=== PATIENT | female | born 1950 | race Caucasian/White ===

== ENCOUNTER 2017-06-22 14:59 | Inpatient (IN) | payer MEDICARE, OTHER ==
[~2017-06-22] VITALS: Ht 162.6 cm; Wt 78.6 kg
[~2017-06-22 14:59] MED LIST: NO HOME MEDS
[2017-06-22 16:43] LABS: BASOPHILS % (AUTO) 0.3 % (0-1); EOSINOPHILS # (AUTO) 0.2 X10'3 (0-0.9); EOSINOPHILS % (AUTO) 2.1 % (0-6); HEMATOCRIT 44.1 % (35.0-45.0); HEMOGLOBIN 15.1 g/dl (12.0-16.0); LYMPHOCYTES # (AUTO) 1.3 X10'3 (1.1-4.8); LYMPHOCYTES % (AUTO) 16.1 % (21-51); MEAN CORPUSCULAR HEMOGLOBIN 30.9 PG (27.0-31.0); MEAN CORPUSCULAR HGB CONC 34.3 % (33.0-36.5); MEAN CORPUSCULAR VOLUME 90.3 FL (78-98); MONOCYTES # (AUTO) 0.4 X10'3 (0-0.9); MONOCYTES % (AUTO) 4.4 % (2-12); NEUTROPHILS # (AUTO) 6.4 X10'3 (1.8-7.7); NEUTROPHILS % (AUTO) 77.1 % (42-75); PLATELET COUNT 221 X10'3 (140-440); RED BLOOD COUNT 4.89 X10'6 (4.20-5.60); RED CELL DISTRIBUTION WIDTH 12.6 % (11.5-14.5); WHITE BLOOD COUNT 8.4 X10'3 (4.5-11.0)
[2017-06-22 16:51] LABS: PROTHROMBIN TIME 10.2 SECONDS (9.0-12.0)
[2017-06-22 16:56] LABS: ANION GAP 10 (8-16); BLOOD UREA NITROGEN 10 MG/DL (7-18); BUN/CREATININE RATIO 12.3 (6.6-38.0); CALCIUM 10.1 MG/DL (8.5-10.1); CHLORIDE 107 MMOL/L (99-107); CREATININE 0.81 MG/DL (0.40-0.90); GLUCOSE 114 MG/DL (70-104); POTASSIUM 4.3 MMOL/L (3.5-5.1); SODIUM 141 MMOL/L (135-145); eGFR 71 ML/MIN
[2017-06-22 16:57] LABS: ALANINE AMINOTRANSFERASE 103 U/L (12-78); ALBUMIN 4.1 G/DL (3.4-5.0); ALBUMIN/GLOBULIN RATIO 0.9 (1.1-1.5); ALKALINE PHOSPHATASE 179 IU/L (46-116); ASPARTATE AMINO TRANSFERASE 110 U/L (10-37); BILIRUBIN,TOTAL 0.5 MG/DL (0.1-1.0); TOTAL PROTEIN 8.5 G/DL (6.4-8.2)
[2017-06-22 17:14] LABS: CLARITY,URINE Clear (Clear); COLOR,URINE Yellow (Yellow); GLUCOSE, URINE Negative (Neg); KETONES,URINE Negative (Neg); LEUKOCYTE ESTERASE ,URINE Negative (Neg); NITRITES, URINE Negative (Neg); OCCULT BLOOD,URINE Negative (Neg); PROTEIN,URINE Negative (Neg)
[2017-06-22 17:15] LABS: UA COLLECTION TYPE CLN CATCH MIDSTREAM
[2017-06-22] MEDS ORDERED: ondansetron/PF 4mg/2ml inj IV ONE (17:30)
[2017-06-22 17:34] LABS: PARTIAL THROMBOPLASTIN TIME 27 SECONDS (22-32)
[2017-06-22] MEDS: HYDROmorphone 1 mg/ml syringe IV PRN ×2 (18:22→19:28)
[2017-06-22 18:48] LABS: LIPASE 82 U/L (73-393)
[2017-06-22] MEDS ORDERED: aspirin 81mg tab.chew PO ONE (19:20)
[2017-06-22 19:22] LABS: D-DIMER 1.01 MG/L FEU (0-0.50)
[2017-06-22] MEDS ORDERED: iohexol 350MG/ML 100ml bottle IV ONE ×2 (19:51→19:52)
[2017-06-22] MEDS ORDERED: LIDOcaine Viscous 15ml cup MM ONE (21:15)
[2017-06-22] MEDS ORDERED: mag hydrox/Alum hydrox/simeth 30ml oral suspension PO ONE (21:15)
[2017-06-22] MEDS ORDERED: LORazepam 1 MG tablet PO PRN (21:30)
[2017-06-22] MEDS ORDERED: LORazepam 2 mg/ml vial IV PRN (21:30)
[2017-06-22] MEDS ORDERED: magnesium hydroxide 30ml (MOM) UD suspension PO PRN (21:30)
[2017-06-22] MEDS ORDERED: ondansetron/PF 4mg/2ml inj IV PRN (21:30)
[2017-06-22] MEDS ORDERED: folic acid inj. 2 MG, thiamine inj. 100 MG, MVI, adult No.4 with vit. K 10 ML in dextro... IV SCH ×4 (21:30)
[2017-06-22] MEDS ORDERED: thiamine inj. 100 MG in normal saline 100ml IV soln 100 ML IV ONE (21:30)
[2017-06-22] MEDS: pantoprazole 40mg Tablet.DR PO SCH (22:53)
[2017-06-22] MEDS: normal saline 1000ml 1,000 ML IV SCH (23:14)
[2017-06-22 23:30] VITALS: BP 170/88
[2017-06-23] MEDS: HYDROmorphone 1 mg/ml syringe IV PRN (03:20)
[2017-06-23] MEDS: mag hydrox/Alum hydrox/simeth 30ml oral suspension PO PRN (03:25)
[2017-06-23 05:12] LABS: BASOPHILS % (AUTO) 0.1 % (0-1); EOSINOPHILS % (AUTO) 0 % (0-6); HEMATOCRIT 41.3 % (35.0-45.0); HEMOGLOBIN 13.9 g/dl (12.0-16.0); LYMPHOCYTES # (AUTO) 1.3 X10'3 (1.1-4.8); MEAN CORPUSCULAR HEMOGLOBIN 30.6 PG (27.0-31.0); MEAN CORPUSCULAR HGB CONC 33.6 % (33.0-36.5); MEAN PLATELET VOLUME 9.1 FL (7.4-10.4); MONOCYTES # (AUTO) 0.7 X10'3 (0-0.9); MONOCYTES % (AUTO) 6.4 % (2-12); NEUTROPHILS # (AUTO) 8.9 X10'3 (1.8-7.7); NEUTROPHILS % (AUTO) 81.5 % (42-75); PLATELET COUNT 201 X10'3 (140-440); RED BLOOD COUNT 4.53 X10'6 (4.20-5.60); RED CELL DISTRIBUTION WIDTH 12.9 % (11.5-14.5); WHITE BLOOD COUNT 10.9 X10'3 (4.5-11.0)
[2017-06-23 06:03] LABS: ALANINE AMINOTRANSFERASE 88 U/L (12-78); ALBUMIN 3.7 G/DL (3.4-5.0); ALBUMIN/GLOBULIN RATIO 0.9 (1.1-1.5); ALKALINE PHOSPHATASE 151 IU/L (46-116); ANION GAP 8 (8-16); ASPARTATE AMINO TRANSFERASE 73 U/L (10-37); BILIRUBIN,TOTAL 0.6 MG/DL (0.1-1.0); BLOOD UREA NITROGEN 12 MG/DL (7-18); CALCIUM 9.3 MG/DL (8.5-10.1); CHLORIDE 106 MMOL/L (99-107); CREATININE 0.86 MG/DL (0.40-0.90); GLUCOSE 130 MG/DL (70-104); POTASSIUM 4.2 MMOL/L (3.5-5.1); SODIUM 141 MMOL/L (135-145); TOTAL CARBON DIOXIDE 27.1 MMOL/L (24-32); TOTAL PROTEIN 7.8 G/DL (6.4-8.2); eGFR 66 ML/MIN
[2017-06-23 06:07] LABS: MAGNESIUM 2.1 MG/DL (1.5-2.4)
[2017-06-23] MEDS: thiamine 100mg tablet PO SCH (07:28)
[2017-06-23] MEDS: pantoprazole 40mg Tablet.DR PO SCH (07:29)
[2017-06-23] MEDS: multivitamins, therapeutics tablet PO SCH (07:29)
[2017-06-23] MEDS: folic acid 1mg tablet PO SCH (07:29)
[2017-06-23 08:22] VITALS: BP 155/87
[2017-06-23] MEDS: normal saline 1000ml 1,000 ML IV SCH ×3 (09:36→19:44)
[2017-06-23 12:00] VITALS: BP 132/63
[2017-06-23] MEDS ORDERED: acetaminophen 325mg tablet PO PRN (14:10)
[2017-06-23 15:05] LABS: H PYLORI ANTIBODY NEGATIVE (Neg)
[2017-06-23 19:00] VITALS: BP_SYST 139; BP_SYST 155; BP_DIAS 67; BP_DIAS 75
[2017-06-24] VITALS: BP 140/74
[2017-06-24 03:28] LABS: BASOPHILS % (AUTO) 0.3 % (0-1); EOSINOPHILS # (AUTO) 0.1 X10'3 (0-0.9); EOSINOPHILS % (AUTO) 1.4 % (0-6); HEMATOCRIT 36.1 % (35.0-45.0); HEMOGLOBIN 12.2 g/dl (12.0-16.0); LYMPHOCYTES # (AUTO) 1.3 X10'3 (1.1-4.8); LYMPHOCYTES % (AUTO) 14.7 % (21-51); MEAN CORPUSCULAR HEMOGLOBIN 30.9 PG (27.0-31.0); MEAN CORPUSCULAR HGB CONC 33.7 % (33.0-36.5); MEAN CORPUSCULAR VOLUME 91.7 FL (78-98); MEAN PLATELET VOLUME 9.4 FL (7.4-10.4); MONOCYTES # (AUTO) 0.6 X10'3 (0-0.9); MONOCYTES % (AUTO) 6.3 % (2-12); NEUTROPHILS # (AUTO) 7.1 X10'3 (1.8-7.7); NEUTROPHILS % (AUTO) 77.3 % (42-75); PLATELET COUNT 145 X10'3 (140-440); RED BLOOD COUNT 3.94 X10'6 (4.20-5.60); RED CELL DISTRIBUTION WIDTH 12.6 % (11.5-14.5); WHITE BLOOD COUNT 9.2 X10'3 (4.5-11.0)
[2017-06-24 04:24] LABS: ALANINE AMINOTRANSFERASE 51 U/L (12-78); ALBUMIN 3.1 G/DL (3.4-5.0); ALBUMIN/GLOBULIN RATIO 0.8 (1.1-1.5); ALKALINE PHOSPHATASE 145 IU/L (46-116); ANION GAP 8 (8-16); ASPARTATE AMINO TRANSFERASE 57 U/L (10-37); BILIRUBIN,TOTAL 0.9 MG/DL (0.1-1.0); BLOOD UREA NITROGEN 7 MG/DL (7-18); CALCIUM 8.4 MG/DL (8.5-10.1); CHLORIDE 106 MMOL/L (99-107); CREATININE 0.78 MG/DL (0.40-0.90); GLUCOSE 140 MG/DL (70-104); POTASSIUM 3.7 MMOL/L (3.5-5.1); SODIUM 139 MMOL/L (135-145); TOTAL CARBON DIOXIDE 25.5 MMOL/L (24-32); TOTAL PROTEIN 6.9 G/DL (6.4-8.2); eGFR 74 ML/MIN
[2017-06-24] MEDS: normal saline 1000ml 1,000 ML IV SCH (04:53)
[2017-06-24 07:30] VITALS: BP 155/74
[2017-06-24] MEDS: pantoprazole 40mg Tablet.DR PO SCH (08:28)
[2017-06-24] MEDS: folic acid 1mg tablet PO SCH (08:28)
[2017-06-24] MEDS: multivitamins, therapeutics tablet PO SCH (08:28)
[2017-06-24] MEDS: thiamine 100mg tablet PO SCH (08:28)
[2017-06-24] MEDS ORDERED: dicyclomine 10 MG capsule PO PRN (10:00)
[2017-06-24 11:12] VITALS: BP 149/84
[2017-06-24] MEDS ORDERED: hydrALAZINE 20mg/ml inj. IV SCH (14:00)
[2017-06-24] MEDS: bismuth subsalicylate 525mg/30ml oral suspension PO SCH ×2 (15:27→20:55)
[2017-06-24] MEDS ORDERED: hydrALAZINE 20mg/ml inj. IV PRN (15:35)
[2017-06-24 15:39] VITALS: BP 137/69
[2017-06-24 19:00] VITALS: BP 155/75
[2017-06-24] MEDS: mag hydrox/Alum hydrox/simeth 30ml oral suspension PO PRN (21:27)
[2017-06-25] VITALS: BP 144/74
[2017-06-25] MEDS: mag hydrox/Alum hydrox/simeth 30ml oral suspension PO PRN ×2 (01:26→05:34)
[2017-06-25] MEDS: bismuth subsalicylate 525mg/30ml oral suspension PO SCH ×3 (02:00→14:00)
[2017-06-25 05:28] LABS: BASOPHILS % (AUTO) 0.3 % (0-1); EOSINOPHILS # (AUTO) 0.2 X10'3 (0-0.9); EOSINOPHILS % (AUTO) 2.1 % (0-6); HEMATOCRIT 36.9 % (35.0-45.0); HEMOGLOBIN 12.6 g/dl (12.0-16.0); LYMPHOCYTES # (AUTO) 1.3 X10'3 (1.1-4.8); LYMPHOCYTES % (AUTO) 16.6 % (21-51); MEAN CORPUSCULAR HEMOGLOBIN 31.4 PG (27.0-31.0); MEAN CORPUSCULAR HGB CONC 34.2 % (33.0-36.5); MEAN CORPUSCULAR VOLUME 91.9 FL (78-98); MEAN PLATELET VOLUME 9.3 FL (7.4-10.4); MONOCYTES # (AUTO) 0.4 X10'3 (0-0.9); MONOCYTES % (AUTO) 5.5 % (2-12); NEUTROPHILS # (AUTO) 6.1 X10'3 (1.8-7.7); NEUTROPHILS % (AUTO) 75.5 % (42-75); PLATELET COUNT 150 X10'3 (140-440); RED BLOOD COUNT 4.02 X10'6 (4.20-5.60); RED CELL DISTRIBUTION WIDTH 12.9 % (11.5-14.5)
[2017-06-25 05:45] LABS: ALANINE AMINOTRANSFERASE 60 U/L (12-78); ALBUMIN 3.1 G/DL (3.4-5.0); ALBUMIN/GLOBULIN RATIO 0.7 (1.1-1.5); ALKALINE PHOSPHATASE 171 IU/L (46-116); ANION GAP 8 (8-16); ASPARTATE AMINO TRANSFERASE 39 U/L (10-37); BILIRUBIN,TOTAL 0.7 MG/DL (0.1-1.0); BLOOD UREA NITROGEN 7 MG/DL (7-18); BUN/CREATININE RATIO 9.6 (6.6-38.0); CALCIUM 8.9 MG/DL (8.5-10.1); CHLORIDE 106 MMOL/L (99-107); CREATININE 0.73 MG/DL (0.40-0.90); GLUCOSE 126 MG/DL (70-104); MAGNESIUM 2.1 MG/DL (1.5-2.4); POTASSIUM 3.8 MMOL/L (3.5-5.1); SODIUM 141 MMOL/L (135-145); TOTAL CARBON DIOXIDE 26.6 MMOL/L (24-32); TOTAL PROTEIN 7.4 G/DL (6.4-8.2); eGFR 80 ML/MIN
[2017-06-25 08:00] VITALS: BP 148/74
[2017-06-25] MEDS: folic acid 1mg tablet PO SCH (08:20)
[2017-06-25] MEDS: pantoprazole 40mg Tablet.DR PO SCH (08:20)
[2017-06-25] MEDS: multivitamins, therapeutics tablet PO SCH (08:21)
[2017-06-25] MEDS: thiamine 100mg tablet PO SCH (08:21)
[2017-06-25] MEDS ORDERED: dicyclomine 10 MG capsule PO ONE (09:20)
[2017-06-25] MEDS ORDERED: FOLI1TAB16 PO (14:51)
[2017-06-25] MEDS ORDERED: THI100T PO (14:51)
[2017-06-25] MEDS ORDERED: PANT40TA4 PO (14:51)
[2017-06-25] MEDS ORDERED: MULT-1179 PO (14:51)
[2017-06-25] MEDS ORDERED: AMLO5TAB4 PO (14:56)
== END 2017-06-25 15:26 | disposition home or self-care (01) | DRG 392 ==
LOC: ER 15:00 → ED HOLD 21:28 → OBSVTOIN 21:28 → SUR 3N 23:07
PROVIDERS: ADMIT Internal Medicine; ATTEND Family Medicine
PROC: B32T1ZZ Computerized Tomography (CT Scan) of Left Pulmonary Artery using Low Osmolar Contrast (ICD-10-PCS; principal; 2017-06-22)
PROC: B3201ZZ Computerized Tomography (CT Scan) of Thoracic Aorta using Low Osmolar Contrast (ICD-10-PCS; 2017-06-22)
PROC: B32S1ZZ Computerized Tomography (CT Scan) of Right Pulmonary Artery using Low Osmolar Contrast (ICD-10-PCS; 2017-06-22)
DX: K29.20 Alcoholic gastritis without bleeding (principal); D35.00 Benign neoplasm of unspecified adrenal gland; F10.20 Alcohol dependence, uncomplicated; I10 Essential (primary) hypertension; R74.0 Nonspecific elevation of levels of transaminase and lactic acid dehydrogenase [LDH]; K57.90 Diverticulosis of intestine, part unspecified, without perforation or abscess without bleeding; Z90.710 Acquired absence of both cervix and uterus; Z90.49 Acquired absence of other specified parts of digestive tract; Z79.899 Other long term (current) drug therapy
CPT/HCPCS: 36415; 71045; 71250; 71275; 74176; 80053; 81003; 82378; 83605; 83690; 83735; 84145; 84439; 84443; 84484; 85025; 85379; 85610; 85730; 86677; 87070; 93005; 96374; 96375; 96376; 99285; J0360; J1170; J2405; J3411; J3490; J7030; J7060; Q9967

== ENCOUNTER 2017-07-02 12:58 | Day surgery (SDC) | payer MEDICARE, OTHER ==
[~2017-07-02] VITALS: Ht 164.1 cm; Wt 87.0 kg
[~2017-07-02 12:58] MED LIST changes: +AMLO5TAB4 PO; +FOLI1TAB16 PO; +MULT-1179 PO; -NO HOME MEDS; +PANT40TA4 PO; +THI100T PO
[2017-07-02] MEDS ORDERED: MIDAZolam 1mg/ml 10ml vial ONE (13:14)
[2017-07-02] MEDS ORDERED: LIDOcaine Viscous 15ml cup ONE (13:14)
[2017-07-02] MEDS ORDERED: fentaNYL/PF 50MCG/1 ML 2ML syringe ONE ×2 (13:14→14:44)
[2017-07-02] MEDS ORDERED: NO HOME MEDS (13:29)
[2017-07-02 13:35] VITALS: BP 157/77
[2017-07-02 15:16] VITALS: BP 150/68
[2017-07-02 15:26] VITALS: BP 131/62
[2017-07-02 15:36] VITALS: BP 144/71
== END 2017-07-02 15:50 | disposition home or self-care (01) ==
LOC: GI LAB 12:58
PROVIDERS: ATTEND Internal Medicine Gastroenterology
DX: K57.30 Diverticulosis of large intestine without perforation or abscess without bleeding (principal); Z79.899 Other long term (current) drug therapy; Z98.890 Other specified postprocedural states; Z90.710 Acquired absence of both cervix and uterus; I10 Essential (primary) hypertension; F10.10 Alcohol abuse, uncomplicated
CPT/HCPCS: 43235; 45378; J2250; J3010; J7030; A4620; G0500

== ENCOUNTER 2020-05-23 19:50 | Emergency (ER) | payer MEDICARE, OTHER ==
[~2020-05-23] VITALS: Ht 157.5 cm; Wt 72.7 kg
[~2020-05-23 19:50] MED LIST changes: -AMLO5TAB4 PO; -FOLI1TAB16 PO; -MULT-1179 PO; +NO HOME MEDS; -PANT40TA4 PO; -THI100T PO
[2020-05-23 20:37] VITALS: BP 173/89
== END 2020-05-23 20:40 ==
LOC: ER 19:51
DX: F10.920 Alcohol use, unspecified with intoxication, uncomplicated (principal); E78.00 Pure hypercholesterolemia, unspecified; F17.200 Nicotine dependence, unspecified, uncomplicated; Z90.49 Acquired absence of other specified parts of digestive tract; Z90.710 Acquired absence of both cervix and uterus; V87.7XXA Person injured in collision between other specified motor vehicles (traffic), initial encounter; Y93.89 Activity, other specified; Y92.89 Other specified places as the place of occurrence of the external cause; Y99.8 Other external cause status
CPT/HCPCS: 99283

== ENCOUNTER 2024-07-31 11:25 | Emergency (ER) | payer MEDICARE, OTHER ==
[~2024-07-31] VITALS: Ht 157.5 cm; Wt 65.5 kg
[2024-07-31 11:31] VITALS: TEMP 97.9
[2024-07-31 13:15] VITALS: BP 170/82; PULSE 79; RESP 14; O2SAT 97
[2024-07-31 15:16] LABS: BASOPHILS % (AUTO) 0.6 % (0-1); EOSINOPHILS # (AUTO) 0.2 X10'3 (0-0.9); EOSINOPHILS % (AUTO) 2.2 % (0-6); HEMATOCRIT 46.7 % (35.0-45.0); HEMOGLOBIN 16.2 g/dl (12.0-16.0); LYMPHOCYTES # (AUTO) 1.2 X10'3 (1.1-4.8); LYMPHOCYTES % (AUTO) 16.5 % (21-51); MEAN CORPUSCULAR HEMOGLOBIN 33.5 PG (27.0-31.0); MEAN CORPUSCULAR HGB CONC 34.8 g/dL (33.0-36.5); MEAN CORPUSCULAR VOLUME 96.2 FL (78-98); MEAN PLATELET VOLUME 8.7 FL (7.4-10.4); MONOCYTES # (AUTO) 0.4 X10'3 (0-0.9); MONOCYTES % (AUTO) 5.3 % (2-12); NEUTROPHILS # (AUTO) 5.5 X10'3 (1.8-7.7); NEUTROPHILS % (AUTO) 75.4 % (42-75); PLATELET COUNT 238 X10'3 (140-440); RED BLOOD COUNT 4.85 X10'6 (4.20-5.60); RED CELL DISTRIBUTION WIDTH 12.6 % (11.5-14.5); WHITE BLOOD COUNT 7.3 X10'3 (4.5-11.0)
[2024-07-31 15:34] LABS: ALANINE AMINOTRANSFERASE 53 U/L (12-78); ALBUMIN 3.7 G/DL (3.4-5.0); ALBUMIN/GLOBULIN RATIO 0.9 (1.1-1.5); ALKALINE PHOSPHATASE 100 IU/L (46-116); ANION GAP 9 (8-16); ASPARTATE AMINO TRANSFERASE 63 U/L (10-37); BILIRUBIN,TOTAL 0.5 MG/DL (0.1-1.0); BLOOD UREA NITROGEN 10 MG/DL (7-18); BUN/CREATININE RATIO 13.9 (10.0-20.0); CALCIUM 9.6 MG/DL (8.5-10.1); CHLORIDE 104 MMOL/L (99-107); CREATININE 0.72 MG/DL (0.40-0.90); GLUCOSE 91 MG/DL (70-104); POTASSIUM 3.9 MMOL/L (3.5-5.1); SODIUM 141 MMOL/L (135-145); TOTAL CARBON DIOXIDE 27.7 MMOL/L (24-32); TOTAL PROTEIN 7.9 G/DL (6.4-8.2); eCRCL 55 ML/MIN; eGFR 79 ML/MIN
[2024-07-31 15:39] LABS: BILIRUBIN,URINE NEGATIVE (Neg); CLARITY,URINE SLIGHTLY CLOUDY (Clear); COLOR,URINE YELLOW (Yellow); GLUCOSE, URINE NEGATIVE (Neg); KETONES,URINE NEGATIVE (Neg); LEUKOCYTE ESTERASE ,URINE SMALL (Neg); NITRITES, URINE POSITIVE (Neg); OCCULT BLOOD,URINE NEGATIVE (Neg); PH,URINE 6.5 (4.8-8.0); PROTEIN,URINE NEGATIVE (Neg)
[2024-07-31 15:42] LABS: UA COLLECTION TYPE CLN CATCH MIDSTREAM
[2024-07-31 15:45] LABS: BACTERIA,URINE 4+ /HPF (Neg); RBC,URINE 0-2 /HPF (0-2)
[2024-07-31 15:46] LABS: SQUAMOUS EPITHELIAL CELL,UR FEW /LPF (FEW); WBC CLUMPS,URINE FEW /HPF (NEGATIVE)
== END 2024-07-31 16:09 | disposition home or self-care (01) ==
LOC: ER 11:26
DX: T33.821A Superficial frostbite of right foot, initial encounter (principal); T33.822A Superficial frostbite of left foot, initial encounter; N39.0 Urinary tract infection, site not specified; E78.00 Pure hypercholesterolemia, unspecified; Z90.49 Acquired absence of other specified parts of digestive tract; Z90.710 Acquired absence of both cervix and uterus; Z72.89 Other problems related to lifestyle; X31.XXXA Exposure to excessive natural cold, initial encounter; Y93.89 Activity, other specified; Y92.89 Other specified places as the place of occurrence of the external cause; Y99.8 Other external cause status
CPT/HCPCS: 36415; 80053; 81001; 83605; 83735; 84145; 85025; 87040; 87077; 87088; 87186; 99283

== ENCOUNTER 2024-08-18 17:45 | Emergency (ER) | payer MEDICARE, OTHER ==
[~2024-08-18] VITALS: Ht 157.5 cm; Wt 65.9 kg
[2024-08-18 23:25] LABS: BASOPHILS % (AUTO) 0.5 % (0-1); EOSINOPHILS # (AUTO) 0.2 X10'3 (0-0.9); EOSINOPHILS % (AUTO) 2.9 % (0-6); HEMATOCRIT 46.4 % (35.0-45.0); HEMOGLOBIN 15.8 g/dl (12.0-16.0); LYMPHOCYTES # (AUTO) 1.9 X10'3 (1.1-4.8); LYMPHOCYTES % (AUTO) 22.8 % (21-51); MEAN CORPUSCULAR HEMOGLOBIN 32.2 PG (27.0-31.0); MEAN CORPUSCULAR VOLUME 94.6 FL (78-98); MEAN PLATELET VOLUME 8.2 FL (7.4-10.4); MONOCYTES # (AUTO) 0.4 X10'3 (0-0.9); NEUTROPHILS # (AUTO) 5.9 X10'3 (1.8-7.7); NEUTROPHILS % (AUTO) 68.8 % (42-75); PLATELET COUNT 248 X10'3 (140-440); RED BLOOD COUNT 4.91 X10'6 (4.20-5.60); RED CELL DISTRIBUTION WIDTH 12.4 % (11.5-14.5); WHITE BLOOD COUNT 8.5 X10'3 (4.5-11.0)
[2024-08-19 00:18] LABS: ALANINE AMINOTRANSFERASE 49 U/L (12-78); ALBUMIN 3.5 G/DL (3.4-5.0); ALBUMIN/GLOBULIN RATIO 0.9 (1.1-1.5); ALKALINE PHOSPHATASE 125 IU/L (46-116); ANION GAP 9 (8-16); ASPARTATE AMINO TRANSFERASE 44 U/L (10-37); BILIRUBIN,TOTAL 0.6 MG/DL (0.1-1.0); BLOOD UREA NITROGEN 11 MG/DL (7-18); CALCIUM 9.7 MG/DL (8.5-10.1); CHLORIDE 105 MMOL/L (99-107); CREATININE 0.61 MG/DL (0.40-0.90); GLUCOSE 104 MG/DL (70-104); SODIUM 141 MMOL/L (135-145); TOTAL CARBON DIOXIDE 27.5 MMOL/L (24-32); TOTAL PROTEIN 7.5 G/DL (6.4-8.2); eCRCL 65 ML/MIN; eGFR > 90 ML/MIN
[2024-08-19 00:20] LABS: URIC ACID 4.6 MG/DL (2.5-6.2)
[2024-08-19 00:32] VITALS: BP 176/87; PULSE 80; RESP 18; TEMP 97.8; O2SAT 98
== END 2024-08-19 00:34 | disposition home or self-care (01) ==
LOC: ER 17:46
DX: S90.922A Unspecified superficial injury of left foot, initial encounter (principal); S90.921A Unspecified superficial injury of right foot, initial encounter; S82.891A Other fracture of right lower leg, initial encounter for closed fracture; E78.00 Pure hypercholesterolemia, unspecified; Z90.49 Acquired absence of other specified parts of digestive tract; Z90.710 Acquired absence of both cervix and uterus; X58.XXXA Exposure to other specified factors, initial encounter; Y93.89 Activity, other specified; Y92.89 Other specified places as the place of occurrence of the external cause; Y99.8 Other external cause status
CPT/HCPCS: 36415; 73630; 80053; 84550; 85025; 99284